=== PATIENT | female | born 1945 | race Hispanic/Latino ===

== ENCOUNTER 2021-01-14 21:39 | Emergency (ER) | payer MEDICARE ==
[2021-01-14] MEDS ORDERED: ASPIRIN 325 MG TAB PO ONE (22:41)
--- NOTE | 2021-01-14 23:03 | Emergency Department Report ---
ED Chest Pain HPI - General Chief Complaint: Chest Pain Stated Complaint: CHEST PRESSURE MID BACK PAIN Time Seen by Provider: 01/14/21 22:42 Source: patient Mode of arrival: Ambulatory Limitations: No Limitations - History of Present Illness Initial Comments: This is a 75-year-old female who presents to the emergency department with a complaint of a 2-day history of substernal and bilateral lower chest discomfort, that she describes as a pressure, mid back pain, dry cough, and dizziness/lightheadedness. The patient went into a [facility] and was told to come immediately to the emergency department for further evaluation. The patient is a tobacco smoker, having started smoking cigarettes about 2 months ago. She has not taken anything for her symptoms prior to presentation. 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 Patient says that her chest pain is about a 7 out of 10 in intensity. No known aggravating or alleviating factors. Patient's shortness of breath worsens with exertion. Patient also says that she has a significant number of allergies and that "there is nothing you can use to treat me." Patient had Covid back in June and is also vaccinated against COVID-19. No recent travel or sick contacts at home. - Related Data Allergies Allergy/AdvReac Type Severity Reaction Status Date / Time acetaminophen Allergy Unknown Verified 01/14/21 23:04 amoxicillin Allergy Hives Verified 01/14/21 22:36 aspirin Allergy Hives Verified 01/14/21 22:38 bee pollen Allergy Nausea Verified 01/14/21 22:40 Penicillins Allergy Unknown Verified 01/14/21 23:04 pentazocine [From Talwin] Allergy Hives Verified 01/14/21 22:40 sulfamethoxazole Allergy Itching Verified 01/14/21 22:38 [From Bactrim] trimethoprim [From Bactrim] Allergy Itching Verified 01/14/21 22:38 Heart Score - HEART Score History: Slightly suspicious EKG: Normal Age: > 65 Risk factors: 1-2 risk factors Troponin: < normal limit HEART Score: 3 - EKG Read Time Time EKG Completed: 22:20 EKG Read Time: 22:25 ED Review of Systems ROS: Stated complaint: CHEST PRESSURE MID BACK PAIN Other details as noted in HPI Comment: All other systems reviewed and negative Constitutional: denies: chills, fever Eyes: denies: eye pain, vision change ENT: denies: ear pain, throat pain Respiratory: cough, shortness of breath Cardiovascular: chest pain. denies: edema Gastrointestinal: denies: abdominal pain, vomiting Genitourinary: denies: dysuria, discharge Musculoskeletal: back pain. denies: arthralgia Skin: denies: rash, lesions Neurological: denies: headache, weakness ED Past Medical Hx - Past Medical History Previous Medical History?: Yes Hx of Cancer: Yes (Lung) Additional medical history: Bradycardia - Surgical History Past Surgical History?: Yes Hx Appendectomy: Yes Additional Surgical History: Hysterectomy. Right breast Lumpectomy. L Breast Lumpectomy - Social History Smoking Status: Never Smoker Substance Use Type: None ED Physical Exam - General Limitations: No Limitations - Other Other exam information: GENERAL: The patient is well-developed well-nourished. HENT: Normocephalic. Atraumatic. Patient has moist mucous membranes. EYES: Extraocular motions are intact. NECK: Supple. Trachea is midline. CHEST/LUNGS: Clear to auscultation. There is no respiratory distress noted. HEART/CARDIOVASCULAR: Regular. There is no tachycardia. There is no murmur. ABDOMEN: Abdomen is soft, nontender. Patient has normal bowel sounds. SKIN: Skin is warm and dry. NEURO: The patient is awake, alert, and oriented. The patient is cooperative. The patient has no focal neurologic deficits. Normal speech. MUSCULOSKELETAL: There is no tenderness or deformity. There is no limitation range of motion. ED Course Vital Signs 01/14/21 01/14/21 01/14/21 22:25 22:27 23:20 Temperature 97.9 F 97.9 F Pulse Rate 86 85 88 Respiratory 18 16 18 Rate Blood Pressure 113/53 113/53 Blood Pressure [Left] O2 Sat by Pulse 94 96 Oximetry 01/14/21 01/15/21 01/15/21 23:30 01:36 01:45 Temperature Pulse Rate 91 H 78 76 Respiratory 21 15 11 L Rate Blood Pressure 116/62 116/62 Blood Pressure [Left] O2 Sat by Pulse 97 95 96 Oximetry 01/15/21 01/15/21 01/15/21 02:01 02:15 02:30 Temperature Pulse Rate 79 81 Respiratory 13 17 Rate Blood Pressure 125/72 125/72 Blood Pressure [Left] O2 Sat by Pulse 96 98 96 Oximetry 01/15/21 01/15/21 01/15/21 02:45 03:01 03:16 Temperature Pulse Rate Respiratory Rate Blood Pressure 125/72 125/72 Blood Pressure [Left] O2 Sat by Pulse 97 93 96 Oximetry 01/15/21 01/15/21 01/15/21 03:39 03:45 04:01 Temperature Pulse Rate Respiratory Rate Blood Pressure 116/50 116/50 111/61 Blood Pressure [Left] O2 Sat by Pulse 97 96 92 Oximetry 01/15/21 01/15/21 04:15 05:04 Temperature 98.6 F Pulse Rate 78 Respiratory 16 Rate Blood Pressure 111/60 Blood Pressure 111/60 [Left] O2 Sat by Pulse 92 96 Oximetry - Consultations Consultation #1: 01/15/21 03:[address] Andersen at the [facility] home about an observational admission for the patient's chest pain. The patient was accepted for transfer to [facility] by Dr. Ross. DEDRICK score - Dedrick Score Age > 65: (1) Yes Aspirin use within the Past 7 Days: (0) No 3 or more CAD Risk Factors: (0) No 2 or more Angina events in past 24 hrs: (1) Yes Known CAD with more than 50% Stenosis: (0) No Elevated Cardiac Markers: (0) No ST Deviation Greater than 0.5mm: (0) No DEDRICK Score: 2 ED Medical Decision Making - Lab Data Result diagrams: 01/14/21 23:21 01/14/21 23:21 Lab Results 01/14/21 01/14/21 01/14/21 Range/Units 23:21 23:21 23:21 WBC 8.0 (4.5-11.0) K/mm3 RBC 4.50 (3.65-5.03) M/mm3 Hgb 13.0 (10.1-14.3) gm/dl Hct 38.7 (30.3-42.9) % MCV 86 (79-97) fl MCH 29 (28-32) pg MCHC 34 (30-34) % RDW 14.5 (13.2-15.2) % Plt Count 267 (140-440) K/mm3 Lymph % (Auto) 24.6 (13.4-35.0) % Blaine % (Auto) 6.8 (0.0-7.3) % Eos % (Auto) 1.9 (0.0-4.3) % Baso % (Auto) 2.1 H (0.0-1.8) % Lymph # (Auto) 2.0 (1.2-5.4) K/mm3 Blaine # (Auto) 0.5 (0.0-0.8) K/mm3 Eos # (Auto) 0.2 (0.0-0.4) K/mm3 Baso # (Auto) 0.2 H (0.0-0.1) K/mm3 Seg Neutrophils % 64.6 (40.0-70.0) % Seg Neutrophils # 5.2 (1.8-7.7) K/mm3 D-Dimer 867.48 H (0-234) ng/mlDDU Sodium 139 (137-145) mmol/L Potassium 4.3 (3.6-5.0) mmol/L Chloride 103.3 (98-107) mmol/L Carbon Dioxide 29 (22-30) mmol/L Anion Gap 11 mmol/L BUN 17 (7-17) mg/dL Creatinine 0.5 L (0.6-1.2) mg/dL Estimated GFR > 60 ml/min BUN/Creatinine Ratio 34 % Glucose 117 H (65-100) mg/dL Calcium 9.3 (8.4-10.2) mg/dL Total Bilirubin 0.20 (0.1-1.2) mg/dL AST 172 H (5-40) units/L ALT 274 H (7-56) units/L Alkaline Phosphatase 111 (35-129) units/L Troponin T < 0.010 (0.00-0.029) ng/mL NT-Pro-B Natriuret Pep (0-900) pg/mL Total Protein 6.4 (6.3-8.2) g/dL Albumin 3.9 (3.9-5) g/dL Albumin/Globulin Ratio 1.6 % 01/14/21 01/15/21 Range/Units 23:21 01:29 WBC (4.5-11.0) K/mm3 RBC (3.65-5.03) M/mm3 Hgb (10.1-14.3) gm/dl Hct (30.3-42.9) % MCV (79-97) fl MCH (28-32) pg MCHC (30-34) % RDW (13.2-15.2) % Plt Count (140-440) K/mm3 Lymph % (Auto) (13.4-35.0) % Blaine % (Auto) (0.0-7.3) % Eos % (Auto) (0.0-4.3) % Baso % (Auto) (0.0-1.8) % Lymph # (Auto) (1.2-5.4) K/mm3 Blaine # (Auto) (0.0-0.8) K/mm3 Eos # (Auto) (0.0-0.4) K/mm3 Baso # (Auto) (0.0-0.1) K/mm3 Seg Neutrophils % (40.0-70.0) % Seg Neutrophils # (1.8-7.7) K/mm3 D-Dimer (0-234) ng/mlDDU Sodium (137-145) mmol/L Potassium (3.6-5.0) mmol/L Chloride (98-107) mmol/L Carbon Dioxide (22-30) mmol/L Anion Gap mmol/L BUN (7-17) mg/dL Creatinine (0.6-1.2) mg/dL Estimated GFR ml/min BUN/Creatinine Ratio % Glucose (65-100) mg/dL Calcium (8.4-10.2) mg/dL Total Bilirubin (0.1-1.2) mg/dL AST (5-40) units/L ALT (7-56) units/L Alkaline Phosphatase (35-129) units/L Troponin T < 0.010 (0.00-0.029) ng/mL NT-Pro-B Natriuret Pep 90.86 (0-900) pg/mL Total Protein (6.3-8.2) g/dL Albumin (3.9-5) g/dL Albumin/Globulin Ratio % - EKG Data -: EKG Interpreted by Ar EKG shows normal: sinus rhythm, axis, intervals, QRS complexes, ST-T waves Rate: normal - EKG Data When compared to previous EKG there are: previous EKG unavailable Interpretation: normal EKG - Radiology Data Radiology results: report reviewed, image reviewed interpreted by me: Chest x-ray does not show any acute process. There are no pleural effusions, obvious pneumonia and there is no pneumothorax. No widened mediastinum. CTA CHEST WITH CONTRAST INDICATION / CLINICAL INFORMATION: CP, Elevated dimer. TECHNIQUE: Axial CT images were obtained through the chest after injection of 100 cc of Omnipaque 350 IV contrast. 3 plane MIP and/or 3D reconstructions were produced. All CT scans at this location are performed using CT dose reduction for ALARA by means of automated exposure control. COMPARISON: None available. FINDINGS: PULMONARY ARTERIES: No central or segmental pulmonary embolus. THORACIC AORTA: Mild atherosclerotic calcification without acute abnormality. HEART: No significant abnormality. ADENOPATHY: No significant adenopathy. LUNGS/PLEURA: There is parenchymal scarring within the left upper lobe/lingula. Bibasilar volume loss and/or scarring. No acute airspace consolidation. No pleural effusion. No pneumothorax. ADDITIONAL FINDINGS: None. UPPER ABDOMEN: No acute findings. SKELETAL STRUCTURES: No significant osseous abnormality. IMPRESSION: No acute findings in the chest. No evidence of pulmonary embolus - Medical Decision Making This patient presents to the emergency department with a 2-day history of some midsternal chest pain, some back pain, dry cough, dizziness/lightheadedness. EKG does not have any morphology consistent with ST elevation myocardial inf arction. Chest x-ray does not show any pneumonia, pleural effusions, pneumothorax, widened mediastinum, or any other acute process. Labs have been mostly unremarkable including CBC, metabolic panel, negative troponins x2, but the patient does have transaminitis and has an elevated D- dimer level. She had a CT angiography of the chest that does not show any pulmonary embolism, dissection, or any other acute process. The patient has a moderate heart score. It was my plan to admit the patient for an observational admission. As she is a [facility] patient, I contacted the [facility] transfer help and spoke with Dr. Andersen. The patient has been accepted for admission and transfer to [facility]. Critical Care Time: No Critical care attestation.: If time is entered above; I have spent that time in minutes in the direct care of this critically ill patient, excluding procedure time. ED Disposition Clinical Impression: Transaminitis, Angina at rest Chest pain Qualifiers: Chest pain type: unspecified Qualified Code(s): R07.9 - Chest pain, unspecified Disposition: 51 HOSPICE/MEDICAL FACILITY Is pt being admited?: No Condition: Fair Time of Disposition: 03:30
[2021-01-14 23:51] LABS: Basophils # (Auto) 0.2 K/mm3 (0.0-0.1); Basophils % (Auto) 2.1 % (0.0-1.8); Eosinophils # (Auto) 0.2 K/mm3 (0.0-0.4); Eosinophils % (Auto) 1.9 % (0.0-4.3); Hematocrit 38.7 % (30.3-42.9); Lymphocytes % (Auto) 24.6 % (13.4-35.0); Mean Corpuscular HGB Conc 34 % (30-34); Mean Corpuscular Volume 86 fl (79-97); Monocytes # (Auto) 0.5 K/mm3 (0.0-0.8); Monocytes % (Auto) 6.8 % (0.0-7.3); Platelet Count 267 K/mm3 (140-440); Red Cell Distribution Width 14.5 % (13.2-15.2)
--- NOTE | 2021-01-15 00:07 | XRay Report ---
XR chest routine 2V INDICATION / CLINICAL INFORMATION: chest pain. COMPARISON: None available. FINDINGS: SUPPORT DEVICES: None. HEART /PULMONARY VASCULATURE: No significant abnormality. LUNGS / PLEURA: Volume loss or scarring in the right lung base. No acute airspace consolidation. No p neumothorax. ADDITIONAL FINDINGS: No significant additional findings. IMPRESSION: 1. No acute findings. Signer Name: Jaswant Goss MD Signed: 01/15/2021 12:02 AM Workstation Name: [id number]
[2021-01-15 00:25] LABS: Alanine Aminotransferase 274 units/L (7-56); Albumin 3.9 g/dL (3.9-5); Blood Urea Nitrogen 17 mg/dL (7-17); Calcium 9.3 mg/dL (8.4-10.2); Hemolysis Index 1
[2021-01-15 00:30] LABS: BUN/Creatinine Ratio 34
--- NOTE | 2021-01-15 02:52 | Cat Scan Report ---
CTA CHEST WITH CONTRAST INDICATION / CLINICAL INFORMATION: CP, Elevated dimer. TECHNIQUE: Axial CT images were obtained through the chest after injection of 100 cc of Omnipaque 350 IV contrast. 3 plane MIP and/or 3D reconstructions were produced. All CT scans at this location are performed using CT dose reduction for ALARA by means of automated exposure control. COMPARISON: None available. FINDINGS: PULMONARY ARTERIES: No central or segmental pulmonary embolus. THORACIC AORTA: Mild atherosclerotic calcification without acute abnormality. HEART: No significant abnormality. ADENOPATHY: No significant adenopathy. LUNGS/PLEURA: There is parenchymal scarring within the left upper lobe/lingula. Bibasilar volume loss and/or scarring. No acute airspace consolidation. No pleural effusion. No pneumothorax. ADDITIONAL FINDINGS: None. UPPER ABDOMEN: No acute findings. SKELETAL STRUCTURES: No significant osseous abnormality. IMPRESSION: No acute findings in the chest. No evidence of pulmonary embolus Signer Name: Jaswant Goss MD Signed: 01/15/2021 2:48 AM Workstation Name: [id number]
[2021-01-15 04:20] VITALS: BP 111/60
--- NOTE | 2021-01-15 13:15 | Electrocardiograph Report ---
[facility] Test Date: 2021-01-14 Test Time: 22:20:42 Pat Name: PARTH BENITEZ Department: Room: Gender: F Customer Care Specialist: ED : 1945 Requested By: DONA TYSON Order Number: [id number] Reading MD: Rory Sifuentes Measurements Intervals [place] Rate: 82 P: 6 DC: 168 QRS: 27 QRSD: 82 T: 37 QT: 359 QTc: 418 Interpretive Statements Sinus rhythm No previous ECG available for comparison Electronically Signed On 01-15-2021 13:14:24 EDT by Rory Sifuentes
== END 2021-01-15 05:23 | disposition hospice, inpatient (51) ==
LOC: ED 21:39
DX: R74.01 Elevation of levels of liver transaminase levels (principal); I20.8 Other forms of angina pectoris; R07.9 Chest pain, unspecified; C34.90 Malignant neoplasm of unspecified part of unspecified bronchus or lung; Z90.89 Acquired absence of other organs; Z90.710 Acquired absence of both cervix and uterus
CPT/HCPCS: 36415; 71046; 71275; 80053; 83880; 84484; 85025; 85379; 93005; 99285; Q9967